=== PATIENT | female | born 1980 | race Caucasian/White ===

== ENCOUNTER 2017-07-31 05:08 | Inpatient (IN) | payer BC ==
[2017-07-31] MEDS ORDERED: XYLOCAINE 2% INFILTRATI ONE ×2 (06:46→10:49)
[2017-07-31] MEDS ORDERED: BRETHINE IVP PRN ×2 (06:46→10:49)
[2017-07-31] MEDS ORDERED: BRETHINE SUB-Q PRN ×2 (06:46→10:49)
[2017-07-31] MEDS ORDERED: MINERAL OIL PO PRN (06:46)
[2017-07-31] MEDS ORDERED: ePHEDrine SULFATE IV PRN ×2 (06:46→10:49)
[2017-07-31] MEDS ORDERED: PITOCin/NS 20 UNIT/1000ML DRIP 20 UNITS/1,000 ML BAG IV SCH (07:00)
[2017-07-31] MEDS ORDERED: LACTATED RINGERS 1,000 ML IV SCH ×2 (07:00→11:00)
[2017-07-31 07:08] LABS: Hematocrit 41.9 % (30.3-42.9); Hemoglobin 14.1 gm/dl (10.1-14.3); Mean Corpuscular HGB Conc 34 % (30-34); Mean Corpuscular Hemoglobin 32 pg (28-32); Mean Corpuscular Volume 94 fl (79-97); Platelet Count 165 K/mm3 (140-440); Red Blood Count 4.47 M/mm3 (3.65-5.03); Red Cell Distribution Width 15.2 % (13.2-15.2)
[2017-07-31] MEDS: SUBLIMAZE IV PRN ×2 (09:30→11:00)
--- NOTE | 2017-07-31 11:36 | History and Physical Report ---
History of Present Illness Date of examination: 07/31/17 Date of admission: 07/31/17 06:37 Chief complaint: 41 weeks with contractions. History of present illness: Patient is 36 year old , LMP 10/25/16, EDC 07/24/17 at 41 weeks gestation who complains of having contractions since 10 PM last night. She denies any fluid leakage or bleeding. She reported good movement. tracing is CAT 1. Past History Past Medical History: other (vit d def) Past Surgical History: no surgical history Social history: no significant social history - Obstetrical History Expected Date of Delivery: 07/23/17 Actual Gestation: 41 Week(s) 1 Day(s) : 8 Para: 4 Hx # Term Pregnancies: 4 Spontaneous Abortions: 3 Number of Living Children: 4 Medications and Allergies Allergies Allergy/AdvReac Type Severity Reaction Status Date / Time No Known Allergies Allergy Unverified 07/31/17 05:19 Active Meds: Active Medications Ephedrine Sulfate (Ephedrine Sulfate) 10 mg IV Q2M PRN PRN Reason: Hypotension Stop: 07/31/17 23:59 Fentanyl (Sublimaze) 100 mcg IV Q2H PRN PRN Reason: Labor Pain Last Admin: 07/31/17 11:00 Dose: 100 mcg Oxytocin/Sodium Chloride (Pitocin/Ns 20 Unit/1000ml Drip) 20 units in 1,000 mls @ 125 mls/hr IV DIRECT CHRISTINA Lactated Ringer's (Lactated Ringers) 1,000 mls @ 125 mls/hr IV DIRECT CHRISTINA Last Admin: 07/31/17 09:30 Dose: 125 mls/hr Mineral Oil (Mineral Oil) 30 ml PO QHS PRN PRN Reason: Constipation Terbutaline Sulfate (Brethine) 0.25 mg SUB-Q ONCE PRN PRN Reason: Hyperstimulation/Hypertonicity Stop: 07/31/17 18:00 Terbutaline Sulfate (Brethine) 0.25 mg IVP ONCE PRN PRN Reason: Hyperstimulation/Hypertonicity Stop: 07/31/17 20:00 - Vital Signs Vital signs: Vital Signs Temp Resp 97.6 F 16 07/31/17 05:21 07/31/17 05:21 Temp Pulse Resp BP Pulse Ox 98.2 F 88 16 118/77 94 07/31/17 11:05 07/31/17 11:21 07/31/17 11:05 07/31/17 11:21 07/31/17 10:29 - Physical Exam Cardiovascular: Normal S1, Normal S2 Lungs: Positive: Clear to auscultation Vulva: both: normal Deep Tendon Reflex Grade: Normal +2 - Obstetrical FHR: category 1 Uterine Contraction Monitor Mode: External Cervical Dilatation: 4 Cervical Effacement Percentage: 100 station: -2 Uterine Contraction Pattern: Regular Results Result Diagrams: 07/31/17 06:43 All other labs normal. Assessment and Plan - Patient Problems (1) 41 weeks gestation of Current Visit: Yes Status: Acute (2) Active labor Current Visit: Yes Status: Acute Plan to address problem: Admit to labor floor. Routine admitting labs. IV fluid. and toco monitoring. Anticipate . (3) Post-dates Current Visit: Yes Status: Acute (4) Advanced maternal age (AMA) in Current Visit: Yes Status: Acute
[2017-07-31] MEDS ORDERED: TUCKS PAD TP PRN (11:52)
[2017-07-31] MEDS ORDERED: LANSINOH TP PRN (11:52)
[2017-07-31] MEDS ORDERED: DULCOLAX PR PRN (11:52)
[2017-07-31] MEDS ORDERED: MILK OF MAGNESIA PO PRN (11:52)
[2017-07-31] MEDS ORDERED: BENADRYL PO PRN (11:52)
[2017-07-31] MEDS ORDERED: ZOFRAN IV PRN (11:52)
[2017-07-31] MEDS ORDERED: PHENERGAN PO PRN (11:52)
[2017-07-31] MEDS ORDERED: TYLENOL PO PRN (11:52)
--- NOTE | 2017-07-31 11:52 | Procedure Note ---
OB Delivery Note - Delivery Date of Delivery: 07/31/17 Surgeon: KATHY LANDEROS Estimated blood loss: 200cc - Vaginal Delivery position: OA Intrapartum events: meconium Delivery induction: none Delivery monitor: external FHT Route of delivery: Delivery placenta: spontaneous Delivery cord: 3 umbilical vessels Episiotomy: none Delivery laceration: none Anesthesia: intravenous Delivery comments: Patient became fully dilated and delivered via a live male from and ANDERS position with Apgars of 8 at 1 min and 9 at 5 mins at 11:34 AM. Bulb suction of mouth and nose, cord clamped and cut, cord blood collected. The placenta was delivered spontaneously and it was complete with a 3-vessel cord. No episiotomy was given. No laceration was sustained. EBL was about 200 cc. Peds were notified. Patient remains stable.
[2017-07-31] MEDS ORDERED: SODIUM CHLORIDE FLUSH SYRINGE 10 ML IV SCH (12:00)
[2017-07-31] MEDS: PERCOCET 5/325 PO PRN (16:15)
[2017-07-31] MEDS: MOTRIN PO SCH (18:50)
[2017-07-31 23:50] LABS: Hematocrit 34.6 % (30.3-42.9); Hemoglobin 11.9 gm/dl (10.1-14.3)
[2017-08-01] MEDS: MOTRIN PO SCH ×2 (09:19)
[2017-08-01] MEDS: PERCOCET 5/325 PO PRN (09:21)
--- NOTE | 2017-08-01 10:49 | Progress Note ---
Assessment and Plan - Patient Problems (1) 41 weeks gestation of Current Visit: Yes Status: Acute (2) Post-dates Current Visit: Yes Status: Acute (3) Advanced maternal age (AMA) in Current Visit: Yes Status: Acute (4) (normal spontaneous vaginal delivery) Current Visit: Yes Status: Acute Plan to address problem: Patient is doing well. She wants to go home today. She will F/U in clinic in 6 weeks. Subjective - Subjective Date of service: 08/01/17 Principal diagnosis: S/P Interval history: Patient is 36 year old , S/P , PPD#1. She denies any complaint. She wants to go home today. Objective - Vital Signs Latest vital signs: Vital Signs Temp Pulse Resp BP BP Pulse Ox 08/01/17 08:50 97.8 F 72 18 106/58 96 08/01/17 00:30 98.6 F 74 18 104/68 07/31/17 19:30 98.6 F 71 18 108/66 07/31/17 15:57 98.7 F 83 18 101/49 96 07/31/17 13:05 98.1 F 79 18 110/65 07/31/17 12:25 90 116/59 07/31/17 12:16 83 116/65 07/31/17 12:01 83 103/70 07/31/17 11:46 83 101/60 07/31/17 11:21 88 118/77 07/31/17 11:09 90 121/73 07/31/17 11:05 98.2 F 16 07/31/17 11:00 18 Intake and Output 07/31/17 08/01/17 08/01/17 23:59 07:59 15:59 Intake Total 480 300 240 Output Total 700 Balance -220 300 240 Intake: Oral 480 240 Intake, Free Water 300 Output: Urine 700 Void 700 Other: Total, Intake Amount 480 240 Total, Output Amount 300 # Voids Void 1 - Exam Cardiovascular: Present: Normal S1, Normal S2 Lungs: Present: Clear to auscultation Vulva: both: normal Deep Tendon Reflex Grade: Normal +2
--- NOTE | 2017-08-01 10:51 | Discharge Summary ---
Providers - Providers Date of Admission: 07/31/17 06:37 Date of discharge: 08/01/17 Attending physician: KATHY LANDEROS MD Primary care physician: KATHY LANDEROS MD Hospitalization Delivery: Episiotomy: none Laceration: none complications: none Discharge diagnosis: IUP at term delivered [place] baby: male Hospital course: Patient did well . She denies any complaint. She wants to go home today. Condition at discharge: Stable Disposition: DC-01 TO HOME OR SELFCARE - Discharge Diagnoses (1) 41 weeks gestation of Status: Acute (2) Post-dates Status: Acute (3) Advanced maternal age (AMA) in Status: Acute (4) (normal spontaneous vaginal delivery) Status: Acute Plan - Provider Discharge Summary Additional instructions: [] Smoking cessation referral if applicable(refer to patient education folder for contact #) [] Refer to [facility] Booklet Call your doctor immediately for: * Fever > 100.5 * Heavy vaginal bleeding ( >1 pad per hour) * Severe persistent headache * Shortness of breath * Reddened, hot, painful area to leg or breast * Drainage or odor from incision. * Keep incision clean and dry at all times and follow doctor's instructions regarding bathing/showering - Follow up plan Follow up: KATHY LANDEROS MD [Primary Care Provider] - 7 Days
[2017-08-01] MEDS ORDERED: Fluarix Quad 2017-2018(36 MOS+ IM ONE (12:08)
[2017-08-01 17:48] VITALS: BP 111/55
== END 2017-08-01 16:00 | disposition home or self-care (01) | DRG 775 ==
LOC: TRG 05:08 → LD 06:37 → OB 13:14
PROVIDERS: ADMIT Obstetrics & Gynecology; ATTEND Obstetrics & Gynecology
PROC: 3E0234Z Introduction of Serum, Toxoid and Vaccine into Muscle, Percutaneous Approach (ICD-10-PCS; principal; 2017-07-31)
PROC: 10E0XZZ Delivery of Products of Conception, External Approach (ICD-10-PCS; 2017-07-31)
DX: O48.0 Post-term pregnancy (principal); Z3A.41 41 weeks gestation of pregnancy; O77.0 Labor and delivery complicated by meconium in amniotic fluid; Z23 Encounter for immunization; Z37.0 Single live birth
CPT/HCPCS: 36415; 85014; 85018; 85027; 86592; 86850; 86900; 86901; 90686; J2590; J3010; J7120